=== PATIENT | female | born 1935 | race Caucasian/White ===

== ENCOUNTER 2020-11-15 07:59 | Day surgery (SDC) | payer MEDICARE ==
[2020-11-15] VITALS (10 sets, daily range): BP systolic 146–166; BP diastolic 63–92
[~2020-11-15] VITALS: Ht 154.9 cm; Wt 55.5 kg
[2020-11-15] MEDS ORDERED: APIX2.5T PO (08:34)
[2020-11-15] MEDS ORDERED: DILT120C91 PO (08:34)
[2020-11-15] MEDS ORDERED: AMIO200T61 PO (08:34)
[2020-11-15] MEDS ORDERED: ROSU40TA22 PO (08:34)
[2020-11-15] MEDS ORDERED: normal saline 1000ml 1,000 ML IV SCH (08:35)
[2020-11-15] MEDS ORDERED: MIDAZolam 1mg/ml 10ml vial IV ONE (08:35)
[2020-11-15] MEDS ORDERED: fentaNYL/PF 50MCG/1 ML 2ML syringe IV ONE (08:35)
[2020-11-15] MEDS ORDERED: atropine 0.1mg/ml 10ml syringe IV ONE (08:35)
[2020-11-15] MEDS ORDERED: CALC600T35 PO (08:38)
[2020-11-15] MEDS ORDERED: MULT-1141 PO (08:38)
[2020-11-15] MEDS ORDERED: VITAMIN D3 (08:38)
[2020-11-15] MEDS ORDERED: BETA1TAB20 PO (08:38)
[2020-11-15] MEDS ORDERED: OMEGA 3 (08:38)
[2020-11-15 09:15] LABS: BASOPHILS % (AUTO) 0.4 % (0-1); EOSINOPHILS % (AUTO) 0.4 % (0-6); HEMATOCRIT 40.5 % (35.0-45.0); HEMOGLOBIN 13.5 g/dl (12.0-16.0); LYMPHOCYTES # (AUTO) 0.8 X10'3 (1.1-4.8); LYMPHOCYTES % (AUTO) 10.7 % (21-51); MEAN CORPUSCULAR HEMOGLOBIN 31.2 PG (27.0-31.0); MEAN CORPUSCULAR HGB CONC 33.4 g/dL (33.0-36.5); MEAN CORPUSCULAR VOLUME 93.4 FL (78-98); MEAN PLATELET VOLUME 9.6 FL (7.4-10.4); MONOCYTES # (AUTO) 0.6 X10'3 (0-0.9); MONOCYTES % (AUTO) 8.6 % (2-12); NEUTROPHILS # (AUTO) 5.7 X10'3 (1.8-7.7); NEUTROPHILS % (AUTO) 79.9 % (42-75); PLATELET COUNT 136 X10'3 (140-440); RED BLOOD COUNT 4.33 X10'6 (4.20-5.60); RED CELL DISTRIBUTION WIDTH 14.9 % (11.5-14.5); WHITE BLOOD COUNT 7.2 X10'3 (4.5-11.0)
[2020-11-15 09:28] LABS: ALBUMIN 3.8 G/DL (3.4-5.0); ANION GAP 10 (8-16); BLOOD UREA NITROGEN 26 MG/DL (7-18); BUN/CREATININE RATIO 25.2 (6.6-38.0); CALCIUM 9.3 MG/DL (8.5-10.1); CHLORIDE 107 MMOL/L (99-107); CREATININE 1.03 MG/DL (0.40-0.90); GLUCOSE 98 MG/DL (70-104); MAGNESIUM 2.3 MG/DL (1.5-2.4); POTASSIUM 4.3 MMOL/L (3.5-5.1); SODIUM 144 MMOL/L (135-145); eGFR 51 ML/MIN
== END 2020-11-15 12:20 | disposition home or self-care (01) ==
LOC: SSTAY O 07:59
PROVIDERS: ATTEND Internal Medicine Cardiovascular Disease
DX: I48.0 Paroxysmal atrial fibrillation (principal); I47.1 Supraventricular tachycardia; I27.20 Pulmonary hypertension, unspecified; E78.5 Hyperlipidemia, unspecified; J44.9 Chronic obstructive pulmonary disease, unspecified; Z95.0 Presence of cardiac pacemaker; Z79.899 Other long term (current) drug therapy
CPT/HCPCS: 36415; 80048; 83735; 85025; 85610; 92960; 93005; 94799; J2250; J3010; J7030

== ENCOUNTER 2022-02-13 08:39 | Day surgery (SDC) | payer MEDICARE ==
[~2022-02-13] VITALS: Ht 154.9 cm; Wt 47.7 kg
[~2022-02-13 08:39] MED LIST: AMIO200T61 PO; APIX2.5T PO; BETA1TAB20 PO; CALC600T35 PO; DILT120C91 PO; MULT-1141 PO; OMEGA 3; ROSU40TA22 PO; VITAMIN D3
[2022-02-13] MEDS ORDERED: LIDOcaine 1% 30ml preserv. free vial SQ STA (08:46)
[2022-02-13] MEDS ORDERED: FURO20TA4 PO (08:59)
[2022-02-13] MEDS ORDERED: LEVO25TA7 PO (08:59)
[2022-02-13] MEDS ORDERED: DILT-94 PO (08:59)
[2022-02-13] MEDS ORDERED: OMEP20CA16 PO (08:59)
[2022-02-13 09:00] VITALS: BP 130/54
[2022-02-13 09:15] VITALS: BP 137/90
[2022-02-13 09:30] VITALS: BP 119/59
[2022-02-13 09:45] VITALS: BP 111/51
== END 2022-02-13 10:00 | disposition home or self-care (01) ==
LOC: SSTAY O 08:39
PROVIDERS: ATTEND Radiology Vascular & Interventional Radiology
DX: J90 Pleural effusion, not elsewhere classified (principal); I25.10 Atherosclerotic heart disease of native coronary artery without angina pectoris; I48.91 Unspecified atrial fibrillation; I11.0 Hypertensive heart disease with heart failure; I50.9 Heart failure, unspecified; Z95.0 Presence of cardiac pacemaker; Z98.49 Cataract extraction status, unspecified eye; Z98.51 Tubal ligation status; Z98.890 Other specified postprocedural states; Z87.891 Personal history of nicotine dependence; Z88.8 Allergy status to other drugs, medicaments and biological substances; Z85.3 Personal history of malignant neoplasm of breast
CPT/HCPCS: 32555; J3490; C1729